=== PATIENT | female | born 1940 | race Caucasian/White ===

== ENCOUNTER → 2021-07-11 | Outpatient (CLI) | payer MEDICARE | END | disposition home or self-care (01) | LOC: RADPV 09:57 | PROVIDERS: ATTEND Internal Medicine Cardiovascular Disease | DX: I08.3 Combined rheumatic disorders of mitral, aortic and tricuspid valves (principal); I48.91 Unspecified atrial fibrillation | CPT/HCPCS: 93306 ==

== ENCOUNTER → 2021-09-08 | Outpatient (CLI) | payer MEDICARE, OTHER | END | disposition home or self-care (01) | LOC: RADMN 13:23 | PROVIDERS: ATTEND Internal Medicine Nephrology | DX: N18.30 Chronic kidney disease, stage 3 unspecified (principal) | CPT/HCPCS: 71046 ==

== ENCOUNTER → 2022-02-15 | Outpatient (CLI) | payer MEDICARE, OTHER | END | disposition home or self-care (01) | LOC: RADMN 12:37 | PROVIDERS: ATTEND Internal Medicine Geriatric Medicine | DX: G31.9 Degenerative disease of nervous system, unspecified (principal); G93.89 Other specified disorders of brain; R41.89 Other symptoms and signs involving cognitive functions and awareness | CPT/HCPCS: 70450 ==

== ENCOUNTER → 2022-03-08 | Outpatient (CLI) | payer MEDICARE, OTHER | END | disposition home or self-care (01) | LOC: RADPV 12:50 | PROVIDERS: ATTEND Internal Medicine Geriatric Medicine | DX: I65.23 Occlusion and stenosis of bilateral carotid arteries (principal); R41.89 Other symptoms and signs involving cognitive functions and awareness | CPT/HCPCS: 93880 ==

== ENCOUNTER 2022-04-18 12:26 | Emergency (ER) | payer MEDICARE, OTHER ==
[~2022-04-18] VITALS: Ht 160 cm; Wt 59.1 kg
[2022-04-18 14:06] LABS: COVID AG,FIA SOURCE NASAL SWAB
[2022-04-18 14:11] LABS: BASOPHILS % (AUTO) 0.3 % (0.0-2.0); EOSINOPHILS % (AUTO) 3.9 % (1.0-6.0); HEMATOCRIT 39.2 % (36-46); LYMPHOCYTES # (AUTO) 0.6 K/uL (1.0-4.8); LYMPHOCYTES % (AUTO) 8.3 % (22.0-44.0); MEAN CORPUSCULAR HEMOGLOBIN 29.4 pg (26.0-34.0); MEAN CORPUSCULAR HGB CONC 33.3 G/dL (31.0-37.0); MEAN CORPUSCULAR VOLUME 88 fL (80-100); MONOCYTES # (AUTO) 0.8 K/uL (0.1-1.0); MONOCYTES % (AUTO) 11.7 % (2.0-9.0); NEUTROPHILS % (AUTO) 75.8 % (40.0-70.0); PLATELET COUNT (AUTO) 283 K/uL (150-450); RED BLOOD CELL COUNT(AUTO) 4.44 MIL/uL (4.00-5.20); RED CELL DISTRIBUTION WIDTH 14.3 % (11.5-14.5)
[2022-04-18 14:19] LABS: ANION GAP 7 mmol/L (8-16); CALCIUM, TOTAL 10.8 mg/dL (8.8-10.5); CARBON DIOXIDE 30 mmol/L (22-29); CHLORIDE 99 mmol/L (98-107); CREATININE 0.87 mg/dL (0.60-1.30); GLUCOSE,RANDOM 112 mg/dL (70-110); POTASSIUM 3.9 mmol/L (3.5-5.1); SODIUM SERUM 136 mmol/L (136-145); UREA NITROGEN, BLOOD 17 mg/dL (7-18)
[2022-04-18 14:20] LABS: GLOMERULAR FILTR. RATE CALC > 60 mL/min (>60)
[2022-04-18 14:25] LABS: ALANINE AMINOTRANSFERASE 19 U/L (12-78); ALBUMIN 3.7 g/dL (3.4-5.0); ALKALINE PHOSPHATASE 116 U/L (46-116); ASPARTATE AMINOTRANSFERASE 15 U/L (15-37); BILIRUBIN,TOTAL 0.7 mg/dL (0.1-1.0); TOTAL PROTEIN, SERUM 7.7 g/dL (6.4-8.2)
[2022-04-18 14:27] LABS: APPEARANCE,URINE HAZY (CLEAR); BILIRUBIN,URINE NEGATIVE (NEGATIVE); GLUCOSE, URINE (UA) NEGATIVE (NEGATIVE); KETONES,URINE NEGATIVE (NEGATIVE); LEUKOCYTE ESTERASE ,URINE NEGATIVE (NEGATIVE); NITRATE,URINE NEGATIVE (NEGATIVE); OCCULT BLOOD,URINE TRACE (NEGATIVE); PROTEIN,URINE NEGATIVE (NEGATIVE); SPECIFIC GRAVITIY, URINE 1.009 (1.003-1.030); UROBILINOGEN,URINE <=1.0 mg/dL (<=1.0)
[2022-04-18 14:28] LABS: B-TYPE NATRIURETIC PEPTIDE 385 pg/mL (0-100)
[2022-04-18 14:44] VITALS: BP 146/72
[2022-04-18 14:53] LABS: RBC,URINE 0-2 /HPF (0-2)
[2022-04-18 14:55] LABS: BACTERIA,URINE Many /HPF (None Seen)
[2022-04-18] MEDS ORDERED: BENZ-70 PO (15:17)
[2022-04-18] MEDS ORDERED: NITR-75 PO (15:17)
== END 2022-04-18 15:31 | disposition home or self-care (01) ==
LOC: EMS 12:26
DX: N39.0 Urinary tract infection, site not specified (principal); Z20.822 Contact with and (suspected) exposure to COVID-19; J06.9 Acute upper respiratory infection, unspecified; E03.9 Hypothyroidism, unspecified; I48.91 Unspecified atrial fibrillation; I10 Essential (primary) hypertension
CPT/HCPCS: 71045; 80053; 81001; 83880; 84484; 85025; 87040; 87086; 93005; 99285; 36415-L1; 36415-TC

== ENCOUNTER → 2022-07-17 | Outpatient (CLI) | payer MEDICARE, OTHER ==
[~2022-07-17] MED LIST: BENZ-70 PO; NITR-75 PO; SESTAMIBI TC99M/UD ISOTOPE 1 EA INJ INJ ONE
== END | disposition home or self-care (01) ==
LOC: RADMN 10:49
PROVIDERS: ATTEND Internal Medicine Nephrology
DX: D35.1 Benign neoplasm of parathyroid gland (principal); E83.52 Hypercalcemia
CPT/HCPCS: 78070; A9500

== ENCOUNTER → 2022-09-14 | Outpatient (CLI) | payer MEDICARE, OTHER ==
[~2022-09-14] MED LIST changes: -SESTAMIBI TC99M/UD ISOTOPE 1 EA INJ INJ ONE
== END | disposition home or self-care (01) ==
LOC: RADMN 10:24
PROVIDERS: ATTEND Internal Medicine Geriatric Medicine
DX: M85.811 Other specified disorders of bone density and structure, right shoulder (principal); M47.812 Spondylosis without myelopathy or radiculopathy, cervical region; M48.02 Spinal stenosis, cervical region; M50.823 Other cervical disc disorders at C6-C7 level; M25.111 Fistula, right shoulder; M25.711 Osteophyte, right shoulder
CPT/HCPCS: 72040; 73030-TC

== ENCOUNTER → 2023-09-16 | Outpatient (CLI) | payer MEDICARE, OTHER ==
[~2023-09-16] MED LIST changes: +BENZ-227 PO; -BENZ-70 PO
== END | disposition home or self-care (01) ==
LOC: RADMN 16:21
PROVIDERS: ATTEND Internal Medicine Geriatric Medicine
DX: I70.0 Atherosclerosis of aorta (principal); J40 Bronchitis, not specified as acute or chronic; R05.3 Chronic cough
CPT/HCPCS: 71046

== ENCOUNTER 2025-03-10 23:36 | Emergency (ER) | payer MEDICARE, OTHER ==
[~2025-03-10] VITALS: Ht 172.7 cm; Wt 65.5 kg
[~2025-03-10 23:36] MED LIST changes: +NITR-104 PO; -NITR-75 PO
[2025-03-10 23:50] VITALS: TEMP 98.3
[2025-03-10] MEDS ORDERED: LOSA-382 PO (23:55)
[2025-03-10] MEDS ORDERED: LEVO88TA4 PO (23:55)
[2025-03-10] MEDS ORDERED: RIVA20TA PO (23:55)
[2025-03-10] MEDS ORDERED: AMLO-258 PO (23:55)
[2025-03-11 00:05] LABS: COVID AG,FIA SOURCE NASAL SWAB
[2025-03-11 00:07] LABS: BASOPHILS % (AUTO) 0.1 % (0.0-2.0); EOSINOPHILS % (AUTO) 0 % (1.0-6.0); HEMATOCRIT 31.7 % (36-46); HEMOGLOBIN 10.4 g/dL (12.0-16.0); LYMPHOCYTES # (AUTO) 0.4 K/uL (1.0-4.8); LYMPHOCYTES % (AUTO) 3.1 % (22.0-44.0); MEAN CORPUSCULAR HEMOGLOBIN 27.1 pg (26.0-34.0); MEAN CORPUSCULAR HGB CONC 32.8 G/dL (31.0-37.0); MEAN CORPUSCULAR VOLUME 83 fL (80-100); MONOCYTES # (AUTO) 1.4 K/uL (0.1-1.0); MONOCYTES % (AUTO) 10.5 % (2.0-9.0); NEUTROPHILS # (AUTO) 11.8 K/uL (1.8-7.7); PLATELET COUNT (AUTO) 232 K/uL (150-450); RED BLOOD CELL COUNT(AUTO) 3.84 MIL/uL (4.00-5.20); RED CELL DISTRIBUTION WIDTH 15.4 % (11.5-14.5); WHITE BLOOD COUNT (AUTO) 13.7 K/uL (4.5-11.0)
[2025-03-11 00:13] LABS: CALCIUM, TOTAL 10.5 mg/dL (8.8-10.5); CARBON DIOXIDE 25 mmol/L (22-29); CREATININE 0.91 mg/dL (0.60-1.30); GLOMERULAR FILTR. RATE CALC 59 mL/min (>60); GLUCOSE,RANDOM 155 mg/dL (70-110); POTASSIUM 3.5 mmol/L (3.5-5.1); SODIUM SERUM 141 mmol/L (136-145); UREA NITROGEN, BLOOD 30 mg/dL (7-18)
[2025-03-11 00:15] LABS: NEUTROPHILS % (AUTO) 86.3 % (40.0-70.0)
[2025-03-11 00:21] VITALS: BP 134/69; PULSE 71; RESP 18; O2SAT 95
[2025-03-11 00:22] LABS: LACTIC ACID 0.9 mmol/L (0.4-2.0)
[2025-03-11 00:27] LABS: INFLUENZA TYPE A NEGATIVE FOR TYPE A (NEGATIVE); INFLUENZA TYPE B NEGATIVE FOR TYPE B (NEGATIVE); SARS-COV2 (COVID) ANTIGEN,FIA Negative (Negative)
[2025-03-11] MEDS: AZITHROMYCIN 500 MG TABLET PO ONE (01:11)
[2025-03-11 13:58] LABS: ANION GAP 8 mmol/L (8-16); CHLORIDE 108 mmol/L (98-107)
== END 2025-03-11 01:38 | disposition home or self-care (01) ==
LOC: EDUNIT# 23:36 → EMS 23:38
DX: J18.9 Pneumonia, unspecified organism (principal); E03.9 Hypothyroidism, unspecified; I12.9 Hypertensive chronic kidney disease with stage 1 through stage 4 chronic kidney disease, or unspecified chronic kidney disease; N18.9 Chronic kidney disease, unspecified; F03.90 Unspecified dementia, unspecified severity, without behavioral disturbance, psychotic disturbance, mood disturbance, and anxiety; Z88.0 Allergy status to penicillin; Z85.038 Personal history of other malignant neoplasm of large intestine; Z79.899 Other long term (current) drug therapy; Z20.822 Contact with and (suspected) exposure to COVID-19
CPT/HCPCS: 99284; 71045; 87426; 80048; 83605; 85025; 87804; 36415; J0456